=== PATIENT | female | born 1945 | race Caucasian/White ===

== ENCOUNTER → 2018-02-17 | Outpatient (CLI) | payer MEDICARE | LOC: M WHC 09:17 | DX: Z12.31 Encounter for screening mammogram for malignant neoplasm of breast (principal); Z78.0 Asymptomatic menopausal state | CPT/HCPCS: 77067 ==

== ENCOUNTER → 2018-05-31 | Outpatient (REF) | payer MEDICARE | LOC: M SFHCWAGY 10:54 | DX: Z12.4 Encounter for screening for malignant neoplasm of cervix (principal); N95.2 Postmenopausal atrophic vaginitis | CPT/HCPCS: G0123 ==

== ENCOUNTER 2019-07-24 08:10 | Day surgery (SDC) | payer MEDICARE ==
[~2019-07-24] VITALS: Ht 154.9 cm; Wt 50.5 kg
[~2019-07-24 08:10] MED LIST: ACET65TA; ASPI81TA63; ASPI81TA85 PO; ATEN25TA; ATOR80TA59 PO; BACT800T; DIOV160T5; EZET10TA21 PO; FERR325T; LIPI80TA; LISI-1046 PO; METF500T4; METF850T4 PO; METO1TAB32 PO; NITR0.4S
[2019-07-24] MEDS ORDERED: NS 1,000 ML IV ONE (09:00)
[2019-07-24] MEDS ORDERED: PROPOFOL 200 MG/20 ML VIAL As Ordered ONE (09:53)
[2019-07-24] MEDS ORDERED: LIDOCAINE 2% INJ 100 MG/5 ML SDV (FOR ANES.) As Ordered ONE (09:53)
--- NOTE | 2019-07-24 10:02 | ROOR ---
Patient Name: Rosie Mora Procedure Date: 07/24/2019 9:39 AM Date of : 1945 Age: 74 Room: [facility] Gender: Female Note Status: Finalized Procedure: Colonoscopy Indications: Screening for colorectal malignant neoplasm Providers: Jackson SHAVER MD Referring MD: DOMO PORTER MD Requesting Provider: Medicines: Monitored Anesthesia Care Complications: No immediate complications. Procedure: Pre-Anesthesia Assessment: - The heart rate, respiratory rate, oxygen saturations, blood pressure, adequacy of pulmonary ventilation, and response to care were monitored throughout the procedure. The Colonoscope was introduced through the anus and advanced to the terminal ileum, with identification of the appendiceal orifice and IC valve. The colonoscopy was performed without difficulty. The patient tolerated the procedure well. The quality of the bowel preparation was good. Findings: The perianal and digital rectal examinations were normal. The sigmoid colon revealed excessive looping. A few medium-mouthed diverticula were found in the sigmoid colon. The exam was otherwise without abnormality on direct and retroflexion views. Impression: - Mild diverticulosis in the sigmoid colon. - The colon examination was otherwise normal on direct and retroflexion views. - No specimens collected. Recommendation: - Repeat colonoscopy in 10 years for screening purposes. Jackson Shaver MD Jackson SHAVER MD 07/24/2019 10:02:21 AM Electronically signed by Jackson SHAVER MD Number of Addenda: 0 Note Initiated On: 07/24/2019 9:39 AM Estimated Blood Loss: Estimated blood loss: none.
[2019-07-24 10:45] VITALS: BP 101/55
== END 2019-07-24 10:45 | disposition home or self-care (01) ==
LOC: M OPP 08:10
PROVIDERS: ATTEND Internal Medicine Gastroenterology
DX: Z12.11 Encounter for screening for malignant neoplasm of colon (principal); K57.30 Diverticulosis of large intestine without perforation or abscess without bleeding; E11.9 Type 2 diabetes mellitus without complications; Z79.82 Long term (current) use of aspirin; Z79.84 Long term (current) use of oral hypoglycemic drugs; Z79.899 Other long term (current) drug therapy; Z95.5 Presence of coronary angioplasty implant and graft

== ENCOUNTER → 2019-11-19 | Outpatient (CLI) | payer MEDICARE ==
--- NOTE | 2019-11-19 13:12 | REPMRS ---
Patient History The patient states she has not had a clinical breast exam in over a year. Family history of pancreatic cancer at age 50 or over in father. Digital Woman Screen Mammo: November 19, 2019 - Exam #: [id number] Bilateral CC and MLO view(s) were taken. Technologist: Genevieve Hopkins, Technologist Prior study comparison: February 17, 2018, digital woman screen mammo performed at [facility]. August 13, 2014, digital woman screen mammo performed at [facility]. August 16, 2012, digital woman screen mammo performed at [facility]. FINDINGS: There are scattered fibroglandular densities. There has been no change in the appearance of the mammogram from the prior studies. There is a mild amount of scattered fibroglandular density which is fairly symmetric. There is no interval development of dominant mass, architectural distortion, or grouped microcalcification suggestive of malignancy. 3-D tomosynthesis shows no additional findings. Assessment: BI-RADS/ACR category 1 mammogram. Negative Mammogram. Recommendation Routine screening mammogram of both breasts in 1 year (for women over age 40). This patient's Lifetime Breast Cancer Risk is estimated at 3.6 %. This mammogram was interpreted with the aid of an FDA-approved computer-aided dectection system. Electronically Signed By: Cesario Hannon MD 11/19/19 [id number]
== END ==
LOC: M WHC 11:04
PROVIDERS: ATTEND Internal Medicine
DX: Z12.31 Encounter for screening mammogram for malignant neoplasm of breast (principal)

== ENCOUNTER → 2021-02-16 | Outpatient (CLI) | payer MEDICARE ==
[~2021-02-16] MED LIST changes: -ASPI81TA85 PO; +ASPI81TA86 PO; -LISI-1046 PO; +LISI2.5T2 PO
--- NOTE | 2021-02-16 13:10 | REPMRS ---
Patient History The patient states she has not had a clinical breast exam in over a year. Patient is postmenopausal. Family history of pancreatic cancer at age 50 or over in father, breast cancer at age 50 or over in paternal half sister. Patient states no breast complaints today. Patient has signed MRS History Sheet. Digital Woman Screen Mammo: February 16, 2021 - Exam #: [id number] Bilateral CC and MLO view(s) were taken. Technologist: RT Soo Prior study comparison: November 19, 2019, bilateral digital woman screen mammo performed at [facility]. February 17, 2018, digital woman screen mammo performed at [facility]. FINDINGS: There are scattered fibroglandular densities. Screening. Digital screening (2D) mammography was performed bilaterally in the CC and MLO projections. Additionally, breast tomosynthesis (3D mammography) was performed bilaterally in the CC and MLO projections. Todays exam was compared to the prior exams(s). By history, the patient has no complaints of a palpable breast abnormality or other significant breast complaints. The breasts are unchanged in size and shape. There are no wendi-soft tissue densities or spiculated masses. There is no internal architectural distortion. Once again, stable benign appearing calcifications are seen.There are no suspicious wendi-calcific clusters. Skin thickening or nipple retraction is not present. IMPRESSION: BI-RADS Category 2- Benign Findings(s). There is no evidence of malignant alteration of the breasts. Followup examination recommended in one year. The Volpara volumetric breast density category is B, there are scattered areas of fibroglandular density. This mammogram was read with the assistance of [facility] [employer],an FDA approved computer aided detection system for mammography. The lifetime Tyrer-Cuzick score is 4.9 % Negative x-ray reports should not delay surgical consultation if a dominant or clinically suspicious mass is present. Not all breast cancers can be identified by mammography. Therefore, we recommend that you continue to perform regular breast self-examination and physical examination and then promptly contact your physician of any concerns or changes. Adenosis and dense breasts may obscure an underlying neoplasm. Assessment: BI-RADS/ACR category 2 mammogram. Benign Findings. Recommendation Routine screening mammogram of both breasts in 1 year. Electronically Signed By: German Ramirez DO 02/16/21 [id number]
== END ==
LOC: M WHC 10:22
PROVIDERS: ATTEND Internal Medicine
DX: Z12.31 Encounter for screening mammogram for malignant neoplasm of breast (principal)

== ENCOUNTER → 2022-08-05 | Outpatient (CLI) | payer MEDICARE ==
[~2022-08-05] MED LIST changes: -LISI2.5T2 PO; +LISI2.5T9 PO
[2022-08-05 13:56] LABS: BASO # 0.1 10^3/uL (0.0-0.2); BASO % 0.7 % (0.0-1.0); EOS # 0.3 10^3/uL (0.0-0.5); EOS % 3.2 % (0.0-3.0); HEMATOCRIT 39.5 % (36.0-47.0); HEMOGLOBIN 12.6 g/dl (12.0-15.5); LYMPH # 2.2 10^3/uL (1.5-5.0); MEAN CORPUSCULAR HEMOGLOBIN 28.6 pg (27.0-33.0); MEAN CORPUSCULAR HGB CONC 31.9 g/dl (32.0-36.5); MEAN CORPUSCULAR VOLUME 89.6 fl (80.0-96.0); MONO # 0.7 10^3/uL (0.0-0.8); MONO % 7.3 % (2.0-8.0); NEUTROPHILS # 6.5 10^3/uL (1.5-8.5); NEUTROPHILS % 66.4 % (36.0-66.0); PLATELET COUNT, AUTOMATED 276 10^3/uL (150-450); RED BLOOD COUNT 4.41 10^6/uL (4.00-5.40); WHITE BLOOD COUNT 9.8 10^3/uL (4.0-10.0)
[2022-08-05 14:22] LABS: ALBUMIN 3.9 GM/DL (3.2-5.2); ALT/SGPT 28 U/L (12-78); BILIRUBIN,TOTAL 0.6 MG/DL (0.2-1.0); BLOOD UREA NITROGEN 17 MG/DL (7-18); CALCIUM LEVEL 9.3 MG/DL (8.8-10.2); CARBON DIOXIDE LEVEL 27 MEQ/L (21-32); CHLORIDE LEVEL 107 MEQ/L (98-107); CHOLESTEROL LEVEL 153 MG/DL (<200); CHOLESTEROL RISK RATIO 2.833 (<5); CREATININE FOR GFR 0.84 MG/DL (0.55-1.30); GLOMERULAR FILTRATION RATE > 60.0 (>39); GLUCOSE, FASTING 118 MG/DL (70-100); HDL CHOLESTEROL 54 MG/DL (>40); LDL CHOLESTEROL 58 MG/DL (<100); NON-HDL-C 99 MG/DL; POTASSIUM SERUM 4.1 MEQ/L (3.5-5.1); SODIUM LEVEL 143 MEQ/L (136-145); TOTAL PROTEIN 6.8 GM/DL (6.4-8.2); TRIGLYCERIDES LEVEL 207 MG/DL (<150)
[2022-08-05 16:06] LABS: HEMOGLOBIN A1c 6.6 %
== END ==
LOC: M WUC 09:01
PROVIDERS: ATTEND Internal Medicine
DX: E78.5 Hyperlipidemia, unspecified (principal); I10 Essential (primary) hypertension; E11.9 Type 2 diabetes mellitus without complications

== ENCOUNTER → 2023-02-16 | Outpatient (CLI) | payer MEDICARE | LOC: M WHC 10:20 | PROVIDERS: ATTEND Nurse Practitioner Family | DX: Z12.31 Encounter for screening mammogram for malignant neoplasm of breast (principal); Z12.39 Encounter for other screening for malignant neoplasm of breast; M85.851 Other specified disorders of bone density and structure, right thigh; M85.852 Other specified disorders of bone density and structure, left thigh ==

== ENCOUNTER 2024-08-01 23:51 | Emergency (ER) | payer MEDICARE ==
[~2024-08-01] VITALS: Ht 152.4 cm; Wt 51.1 kg
[2024-08-01 23:58] VITALS: TEMP 97.6
[2024-08-02 00:32] LABS: BASO # 0.1 10^3/uL (0.0-0.2); BASO % 0.7 % (0.0-1.0); EOS # 0.3 10^3/uL (0.0-0.5); EOS % 2.7 % (0.0-3.0); HEMATOCRIT 37.6 % (36.0-47.0); HEMOGLOBIN 12.5 g/dl (12.0-15.5); LYMPH % 18.9 % (24.0-44.0); MEAN CORPUSCULAR HEMOGLOBIN 29.1 pg (27.0-33.0); MEAN CORPUSCULAR HGB CONC 33.2 g/dl (32.0-36.5); MEAN CORPUSCULAR VOLUME 87.4 fl (80.0-96.0); MONO # 0.9 10^3/uL (0.0-0.8); MONO % 8.1 % (2.0-8.0); NEUTROPHILS # 7.4 10^3/uL (1.5-8.5); NEUTROPHILS % 69.1 % (36.0-66.0); PLATELET COUNT, AUTOMATED 247 10^3/uL (150-450); WHITE BLOOD COUNT 10.7 10^3/uL (4.0-10.0)
[2024-08-02] MEDS: ASPIRIN 81MG CHEW TABLET PO ONE (00:46)
[2024-08-02 00:51] LABS: BLOOD UREA NITROGEN 22 MG/DL (9-23); CALCIUM LEVEL 9.9 MG/DL (8.3-10.6); CARBON DIOXIDE LEVEL 28 MMOL/L (20-31); CHLORIDE LEVEL 107 MMOL/L (98-107); CK-MB VALUE MASS < 1.0 NG/ML (<3.6); CPK CREATINE PHOSPHOKINASE 44 U/L (34-145); CREATININE FOR GFR 0.65 MG/DL (0.55-1.30); GLOMERULAR FILTRATION RATE > 60.0 (>39); GLUCOSE, FASTING 137 MG/DL (74-106); MB/CK RELATIVE INDEX 2.27 (< OR =4); POTASSIUM SERUM 3.9 MMOL/L (3.5-5.1); SODIUM LEVEL 142 MMOL/L (136-145)
[2024-08-02] MEDS ORDERED: ISOVUE-370 76% 100ML VIAL As Ordered ONE (01:09)
[2024-08-02 02:27] LABS: CK-MB VALUE MASS < 1.0 NG/ML (<3.6)
[2024-08-02 02:28] LABS: CPK CREATINE PHOSPHOKINASE 34 U/L (34-145); MB/CK RELATIVE INDEX 2.94 (< OR =4)
[2024-08-02] MEDS ORDERED: NAPR-837 PO (03:45)
[2024-08-02 03:59] VITALS: BP 113/60; O2SAT 96
== END 2024-08-02 04:11 | disposition home or self-care (01) ==
LOC: M ED 23:51
DX: R07.89 Other chest pain (principal); I25.2 Old myocardial infarction; E11.9 Type 2 diabetes mellitus without complications; I10 Essential (primary) hypertension; E78.5 Hyperlipidemia, unspecified; F10.10 Alcohol abuse, uncomplicated; Z86.79 Personal history of other diseases of the circulatory system; Z79.84 Long term (current) use of oral hypoglycemic drugs; Z79.82 Long term (current) use of aspirin; Z79.02 Long term (current) use of antithrombotics/antiplatelets; Z79.4 Long term (current) use of insulin; Z79.899 Other long term (current) drug therapy
CPT/HCPCS: 36415; 71045; 71275; 80048; 82550; 82553; 84484; 85025; 85730; 93005; 93041; 94760; 99285; Q9967

== ENCOUNTER → 2025-01-01 | Outpatient (CLI) | payer MEDICARE ==
[~2025-01-01] MED LIST changes: +NAPR-837 PO
== END ==
LOC: M PLAIMG 08:40
PROVIDERS: ATTEND Internal Medicine
DX: D38.1 Neoplasm of uncertain behavior of trachea, bronchus and lung (principal); I70.0 Atherosclerosis of aorta; I25.10 Atherosclerotic heart disease of native coronary artery without angina pectoris; N28.89 Other specified disorders of kidney and ureter; R91.8 Other nonspecific abnormal finding of lung field